=== PATIENT | female | born 1985 | race American Indian/Alaskan Native ===

== ENCOUNTER 2017-05-10 18:09 | Observation (INO) | payer OTHER ==
[2017-05-10 18:09] VITALS: BMI 25.3
--- NOTE | 2017-05-10 19:54 | C.PDOC ---
History Of Present Illness 32 y/o female presents to the ER with midsternal, nonradiating chest pain she described as "tightening" that began 25 minutes before coming to the ER. Patient took 3 motrin pills earlier for back pain. Patient saw her OB who noticed her blood pressure was elevated and told her go to to ER. Patient denies any nausea or vomiting. Time Seen by Provider: 05/10/17 19:24 Chief Complaint (Nursing): Chest Pain History Per: Patient History/Exam Limitations: no limitations Onset/Duration Of Symptoms: Mins (25) Current Symptoms Are (Timing): Still Present Severity: Mild Pain Scale Rating Of: 4 Quality: Tightness Associated Symptoms: denies: Nausea Modifying Factors: None Exacerbating Factors: None Alleviating Factors: None Recent travel outside of the [place]: No Past Medical History Reviewed: Historical Data, Nursing Documentation, Vital Signs Vital Signs: Last Vital Signs Temp 97.9 F 05/10/17 22:18 Pulse 53 L 05/11/17 00:22 Resp 18 05/11/17 00:22 BP 180/92 H 05/11/17 00:22 Pulse Ox 100 05/11/17 00:22 - Medical History PMH: No Chronic Diseases Surgical History: No Surg Hx Family History: States: No Known Family Hx - Social History Hx Tobacco Use: No Hx Alcohol Use: No Hx Substance Use: No - Immunization History Hx Tetanus Toxoid Vaccination: No Hx Influenza Vaccination: No Hx Pneumococcal Vaccination: No Review Of Systems Constitutional: Negative for: Fever Cardiovascular: Positive for: Chest Pain (midsternal, non radiating) Respiratory: Negative for: Shortness of Breath Gastrointestinal: Negative for: Nausea, Vomiting Neurological: Positive for: Headache Physical Exam - Physical Exam Appears: Non-toxic Skin: Warm, Dry Head: Normacephalic Oral Mucosa: Moist Chest: Symmetrical Cardiovascular: Rhythm Regular (Bradycardic) Respiratory: No Rales, No Rhonchi, No Wheezing Gastrointestinal/Abdominal: Soft, No Tenderness Neurological/Psych: Oriented x3 ED Course And Treatment - Laboratory Results Result Diagrams: 05/10/17 22:07 05/10/17 22:07 O2 Sat by Pulse Oximetry: 100 (room air) Pulse Ox Interpretation: Normal Progress Note: Plans- EKG Critical Care Time - Critical Care Note Total Time (in mins): 30 Documented critical care: time excludes all time spent performing seperately billable procedures. Disposition Discussed With Dr.: Medina Araujo Comment: accepted the pt on his service and took over the care at 12:41 AM Doctor Will See Patient In The: Hospital Counseled Patient/Family Regarding: Studies Performed, Diagnosis - Disposition Disposition: HOSPITALIZED Disposition Time: 00:41 Condition: FAIR Forms: [facility] (Turkmen) - Clinical Impression Clinical Impression: Hypertension, Pre-eclampsia in period - Scribe Statement The provider has reviewed the documentation as recorded by the Kiel Lanier Provider Attestation: All medical record entries made by the Kiel were at my direction and personally dictated by me. I have reviewed the chart and agree that the record accurately reflects my personal performance of the history, physical exam, medical decision making, and the department course for this patient. I have also personally directed, reviewed, and agree with the discharge instructions and disposition. Decision To Admit - Pt Status Changed To: Hospital Disposition Of: Observation - . Bed Request Type: Telemetry Admitting Physician: Medina Araujo Patient Diagnosis: Hypertension, Pre-eclampsia in period
[2017-05-10 22:10] LABS: BASO # 0.1 K/uL (0.0-0.2); BASO % 1.3 % (0.0-2.0); EOS # 0.1 K/uL (0.0-0.7); EOS % 1.9 % (0.0-4.0); HEMATOCRIT 35.6 % (34.0-47.0); LYMPH # 2.8 K/uL (1.0-4.3); LYMPH % 35.4 % (20.0-40.0); MEAN CELL VOLUME 74.3 fL (81.0-99.0); MEAN CORPUSCULAR HEMOGLOBIN 23.2 pg (27.0-31.0); MEAN CORPUSCULAR HGB CONC 31.2 g/dL (33.0-37.0); MEAN PLATELET VOLUME 8.1 fL (7.2-11.7); MONO # 0.8 K/uL (0.0-0.8); MONO % 10.5 % (0.0-10.0); NRBC % 0.1 % (0.0-2.0); WHITE BLOOD COUNT 7.8 K/uL (4.8-10.8)
[2017-05-10 22:16] LABS: RBC URINE 10 /hpf (0-3); URINE BILIRUBIN NEGATIVE (NEGATIVE); URINE BLOOD 1+ (NEGATIVE); URINE COLOR Straw (YELLOW); URINE GLUCOSE (UA) NORMAL (Normal); URINE KETONE NEGATIVE (NEGATIVE); URINE LEUKOCYTE ESTERASE 3+ Leu/uL (Negative); URINE PROTEIN NEGATIVE (NEGATIVE); URINE UROBILINOGEN NORMAL mg/dL (0.2-1.0); WBC URINE 36 /hpf (0-5)
[2017-05-10 22:18] LABS: CHLORIDE 104 mmol/L (98-107); SODIUM 137 mmol/L (132-148)
[2017-05-10 22:19] LABS: POTASSIUM 3.6 mmol/L (3.6-5.2)
[2017-05-10 22:21] LABS: ALKALINE PHOSPHATASE 119 U/L (38-126); ALT/SGPT 78 U/L (9-52); AST/SGOT 38 U/L (14-36); BILIRUBIN,TOTAL 0.4 mg/dL (0.2-1.3); BLOOD UREA NITROGEN 13 mg/dL (7-17); CARBON DIOXIDE 21 mmol/L (22-30); GFR AFRICAN-AMERICAN > 60; GLUCOSE,RANDOM 69 mg/dL (65-105)
[2017-05-10 22:22] LABS: CALCIUM 8.7 mg/dl (8.6-10.4)
[2017-05-10] MEDS ORDERED: Labetalol 25mg/5ml Syringe IVP STA (22:44)
[2017-05-10] MEDS ORDERED: Labetalol 25mg/5ml Syringe ONE (22:49)
[2017-05-11] MEDS ORDERED: NIFEdipine 30 mg ER Tab PO STA (01:13)
[2017-05-11] MEDS ORDERED: Magnesium Sulfate 4 gm/100 ml 4 GM/100 ML BAG IVPB ONE ×2 (02:15→03:30)
[2017-05-11 02:27] LABS: MAGNESIUM 1.7 mg/dL (1.6-2.3)
[2017-05-11] MEDS ORDERED: Magnesium Sulfate 20 gm 20 MG/0.5 ML BAG IV SCH (02:35)
[2017-05-11] MEDS ORDERED: Magnesium Sulfate 20 gm 20,000 MG/500 ML BAG IV SCH (02:35)
[2017-05-11] MEDS ORDERED: Magnesium Sulfate 20 gm 20,000 MG/500 ML BAG IV ONE (04:25)
--- NOTE | 2017-05-11 05:51 | OBADHP ---
Datetime: 05/11/2017 03:42 Admit Comment, IP Provider: Chief compalint-elevated bp from ER HPI 32 y/o S/P NVD 05/04/2017 presented to er from her primary Md office.patient steta that sh gabriela had a headache and hence wnet to see her obgyn(Dr Quan) and was told she cmap shigh blood pressure and hence referred to ER.Patient in the ER was found to have high blood pressure with highest systol ic bp in 203 and distolic 103mmg hg.Patient received iv labetalol,iv hydralazine and nifedipien 30mg xl in the ERPatient had labs done in er.Labs shows mildly elevated ast and alst but normal plt count and no proteinuria.Patient states that this is her first epsiode of elevated bp course-denies hx of gdm, pre-eclampsia PMH denies PSH denies OBGYN HX Social hx denies tobacco,alcohol or illciit drug use Exam General nad Lungs ctab Heart S1S2+ rrr abdomen soft and nontender extremities dtr2+ A/P 32 y/o s/p nvd 05/04/2017 presented to ed with new onset hypertenson /pre-eclamp norma -blood pressure improved -start magneisum for seizure prophylaxis -monitor vitals closely Extremities - PN: Normal Abdomen - PN: Normal Back - PN: Normal Lungs - PN: Normal Heart - PN: Normal General - PN: Normal Vital Signs Provider: Reviewed DTRs - PN: Normal
--- NOTE | 2017-05-11 05:53 | OBPPN ---
Datetime: 05/11/2017 05:50 PP Pain Prov: Within normal limits PP Nausea Prov: Denies PP Flatus Prov: Yes PP Heart Prov: Normal PP Lungs Prov: Normal PP CVA Tenderness Prov: Normal PP Extremities Prov: Normal PP Progress Note Prov: Patient admitted with psotpartum pre-eclampsia On amgensium sulfate for seizure prophyalxis.denies any complaints.denies nausea, vomiting, headac eh. chest pain, shortness of breath, numbness or tingling in hands and feet O-VS BP 140-150S/80-90S lUNGS CTAB eXT dtr2+ A/P Patient with hypertension.pre-eclampsia ppd 7 -continue magnesium sulfate for seizure prophylaxis -magnesium level q6 hours -repeat labs in am -monitor urine output Vital Signs Provider PP: Reviewed Vital Signs Provider Details PP: BP mainly 140-150ss/80-90s
[2017-05-11] MEDS ORDERED: hydrALAZINE 12.5 mg Tab PO SCH (10:00)
[2017-05-11] MEDS ORDERED: Pantoprazole 40 mg EC Tab PO SCH (10:00)
--- NOTE | 2017-05-11 20:26 | CP.PCM.CON ---
Past Patient History - Past Social History Smoking Status: Never Smoked - PSYCHIATRIC Hx Substance Use: No - SURGICAL HISTORY Hx Surgeries: Yes Other/Comment: LEEP PROCEDURE Meds Allergies/Adverse Reactions: Allergies Allergy/AdvReac Type Severity Reaction Status Date / Time No Known Allergies Allergy Verified 05/10/17 18:27 - Medications Medications: Current Medications Acetaminophen (Tylenol 325mg Tab) 650 mg PO Q6 PRN PRN Reason: Pain, Mild (1-3) Last Admin: 05/11/17 11:40 Dose: 650 mg Hydralazine HCl (Apresoline) 5 mg IVP Q8 PRN PRN Reason: Other Hydralazine HCl (Apresoline) 25 mg PO TID GARIMA Magnesium Sulfate (Magnesium Sulfate) 20,000 mg in 500 mls @ 50 mls/hr IV .Q10H GARIMA; 2 GM/HR PRN Reason: Protocol Last Admin: 05/11/17 04:28 Dose: 50 mls/hr Pantoprazole Sodium (Protonix Ec Tab) 40 mg PO DAILY GARIMA Results - Vital Signs Recent Vital Signs: Last Vital Signs Temp 98.3 F 05/11/17 11:40 Pulse 57 L 05/11/17 01:56 Resp 18 05/11/17 01:56 BP 165/89 H 05/11/17 01:56 Pulse Ox 100 05/11/17 01:56 - Labs Result Diagrams: 05/10/17 22:07 05/10/17 22:07 Labs: Laboratory Results - last 24 hr 05/10/17 05/10/17 05/10/17 22:07 22:07 22:07 WBC 7.8 RBC 4.79 Hgb 11.1 Hct 35.6 MCV 74.3 L MCH 23.2 L MCHC 31.2 L RDW 23.0 H Plt Count 310 MPV 8.1 Neut % (Auto) 50.9 Lymph % (Auto) 35.4 [place] % (Auto) 10.5 H Eos % (Auto) 1.9 Baso % (Auto) 1.3 Neut # 4.0 Lymph # 2.8 [place] # 0.8 Eos # 0.1 Baso # 0.1 Sodium 137 Potassium 3.6 Chloride 104 Carbon Dioxide 21 L Anion Gap 16 BUN 13 Creatinine 0.6 L Est GFR ( Amer) > 60 Est GFR (Non-Af Amer) > 60 Random Glucose 69 Calcium 8.7 Magnesium Total Bilirubin 0.4 AST 38 H ALT 78 H Alkaline Phosphatase 119 Lactate Dehydrogenase Troponin I < 0.0120 Total Protein 7.0 Albumin 3.5 Globulin 3.5 Albumin/Globulin Ratio 1.0 Urine Color Straw Urine Clarity Sl hazy Urine pH 6.0 Ur Specific [place] 1.009 Urine Protein Negative Urine Glucose (UA) Normal Urine Ketones Negative Urine Blood 1+ H Urine Nitrate Negative Urine Bilirubin Negative Urine Urobilinogen Normal Ur Leukocyte Esterase 3+ H Urine WBC (Auto) 36 H Urine RBC (Auto) 10 H Ur Squamous Epith Cells 4 05/11/17 05/11/17 02:12 13:14 WBC RBC Hgb Hct MCV MCH MCHC RDW Plt Count MPV Neut % (Auto) Lymph % (Auto) [place] % (Auto) Eos % (Auto) Baso % (Auto) Neut # Lymph # [place] # Eos # Baso # Sodium Potassium Chloride Carbon Dioxide Anion Gap BUN Creatinine Est GFR ( Amer) Est GFR (Non-Af Amer) Random Glucose Calcium Magnesium 1.7 4.7 H Total Bilirubin AST ALT Alkaline Phosphatase Lactate Dehydrogenase 403 Troponin I Total Protein Albumin Globulin Albumin/Globulin Ratio Urine Color Urine Clarity Urine pH Ur Specific [place] Urine Protein Urine Glucose (UA) Urine Ketones Urine Blood Urine Nitrate Urine Bilirubin Urine Urobilinogen Ur Leukocyte Esterase Urine WBC (Auto) Urine RBC (Auto) Ur Squamous Epith Cells
[2017-05-11] MEDS: NIFEdipine 30 mg ER Tab PO SCH (22:20)
--- NOTE | 2017-05-12 07:42 | CP.PCM.PN ---
Subjective - Date & Time of Evaluation Date of Evaluation: 05/12/17 Time of Evaluation: 08:00 - Subjective Subjective: pt was seen at bed side, pain under control.occ hedache no blury vision, no ruwq pain. no other com abd soft,non tender ext no edema,no calf ten labs normal bp normal Objective - Vital Signs/Intake and Output Vital Signs (last 24 hours): Temp Pulse Resp BP Pulse Ox 97.6 F 79 20 153/98 H 100 05/11/17 20:15 05/11/17 20:15 05/11/17 20:15 05/11/17 20:15 05/11/17 20:15 - Medications Medications: Current Medications Acetaminophen (Tylenol 325mg Tab) 650 mg PO Q6 PRN PRN Reason: Pain, Mild (1-3) Last Admin: 05/12/17 07:36 Dose: 650 mg Hydralazine HCl (Apresoline) 5 mg IVP Q8 PRN PRN Reason: Other Hydralazine HCl (Apresoline) 25 mg PO TID GARIMA Magnesium Sulfate (Magnesium Sulfate) 20,000 mg in 500 mls @ 50 mls/hr IV .Q10H GARIMA; 2 GM/HR PRN Reason: Protocol Last Admin: 05/11/17 04:28 Dose: 50 mls/hr Nifedipine (Procardia Xl) 30 mg PO DAILY GARIMA Last Admin: 05/11/17 22:20 Dose: 30 mg - Labs Labs: 05/10/17 22:07 05/10/17 22:07 Assessment and Plan - Assessment and Plan (Free Text) Assessment: 32 yr with post preeclampsia s/p mgso4 Plan: plan dc home procardia 30 xl cont pnv i=preeclamtic s/s given f/u pmd in 1-2 days
[2017-05-12 08:41] VITALS: RESP 18
[2017-05-12 09:06] LABS: HEMATOCRIT 41.5 % (34.0-47.0); MEAN CELL VOLUME 74.5 fL (81.0-99.0); MEAN CORPUSCULAR HEMOGLOBIN 23.3 pg (27.0-31.0); MEAN CORPUSCULAR HGB CONC 31.3 g/dL (33.0-37.0); MEAN PLATELET VOLUME 7.7 fL (7.2-11.7); RED CELL DISTRIBUTION WIDTH 23.8 % (11.5-14.5); WHITE BLOOD COUNT 7.8 K/uL (4.8-10.8)
[2017-05-12] MEDS: NIFEdipine 30 mg ER Tab PO SCH (09:33)
[2017-05-12 09:34] LABS: CHLORIDE 104 mmol/L (98-107)
[2017-05-12 09:35] LABS: POTASSIUM 3.7 mmol/L (3.6-5.2); SODIUM 138 mmol/L (132-148)
[2017-05-12 09:37] LABS: ALB/GLOB RATIO 0.9 (1.0-2.1); ALKALINE PHOSPHATASE 118 U/L (38-126); ALT/SGPT 56 U/L (9-52); AST/SGOT 32 U/L (14-36); BILIRUBIN,TOTAL 0.5 mg/dL (0.2-1.3); BLOOD UREA NITROGEN 10 mg/dL (7-17); CARBON DIOXIDE 25 mmol/L (22-30); GFR AFRICAN-AMERICAN > 60; GLUCOSE,RANDOM 97 mg/dL (65-105); TOTAL PROTEIN 7.8 g/dL (6.3-8.3)
[2017-05-12 09:38] LABS: CALCIUM 9.3 mg/dl (8.6-10.4)
[2017-05-12] MEDS ORDERED: Influenza Vaccine 60 mcg/0.5 mL SYR (4YR UP) IM ONE (11:30)
[2017-05-12 16:53] VITALS: BP 119/75; PULSE 57; TEMP 99.3; O2SAT 100
--- NOTE | 2017-05-13 12:48 | CARD ---
APPROVED REPORT EKG Measurement Heart [id number] <Conclusion> Sinus bradycardia Otherwise normal ECG
--- NOTE | 2017-05-13 12:49 | CARD ---
APPROVED REPORT EKG Measurement Heart [id number] [id number] <Conclusion> Sinus bradycardia Minimal voltage criteria for LVH, may be normal variant Borderline ECG
== END 2017-05-12 12:52 | disposition home or self-care (01) ==
LOC: C.ER 18:09 → C.9E 05-11 00:40 → C.6T 05-11 01:39 → C.4D 05-11 02:12 → C.4M 05-11 21:00
PROVIDERS: ADMIT Student in an Organized Health Care Education/Training Program; ATTEND Student in an Organized Health Care Education/Training Program
DX: O14.95 Unspecified pre-eclampsia, complicating the puerperium (principal)
CPT/HCPCS: 36415; 80053; 81001; 83615; 83735; 84484; 85025; 85027; 93005; 96374; 99285; G0378; J0360; J3475